=== PATIENT | female | born 1980 | race Caucasian/White ===

== ENCOUNTER → 2020-09-30 08:27 | Outpatient (CLI) | payer BC, SELFPAY ==
[2020-09-30 20:45] LABS: SARS-CoV-2 RNA PCR Negative
== END ==
PROVIDERS: PCP Nurse Practitioner Adult Health; Visit Provider Nurse Practitioner Adult Health
DX: Z20.822 Contact with and (suspected) exposure to COVID-19 (principal); B34.9 Viral infection, unspecified
CPT/HCPCS: C9803; U0003; U0005

== ENCOUNTER 2021-04-05 13:57 | Emergency (ER) | payer SELFPAY ==
[2021-04-05] VITALS (20 sets, daily range): BP systolic 109–136; BP diastolic 68–94; PULSE 95–134; RESP 13–22; TEMP 36.6–37.6; O2SAT 94–100
--- NOTE | ~2021-04-05 | XR_ITS ---
EXAMINATION: XR chest 2V 04/05/2021 14:14 INDICATION: Chest pain, vomiting and diarrhea PROCEDURE: 2 view chest COMPARISON: 08/26/2008 FINDINGS: The lungs are clear. The cardiomediastinal silhouette is within normal limits. There are no pleural effusions. There is no pneumothorax suspected. There are cholecystectomy clips. IMPRESSION: 1: NO ACUTE CARDIOPULMONARY DISEASE. Reviewed, dictated and finalized at location A.
--- NOTE | ~2021-04-05 | CT_ITS ---
EXAMINATION: CTA chest PE protocol DATE: 04/05/2021 23:11 INDICATION: Left chest pain. TECHNIQUE: Computed tomography angiography (CTA) of the chest was performed with 100 mL Omnipaque-350 intravenous contrast timed to evaluate the pulmonary arteries. Coronal maximum intensity projection 3D-reconstructions were created by the technologist. Automated exposure control and iterative reconst ruction technique were employed. The dose-length product was 466.28 mGy-cm. COMPARISON: CT abdomen and pelvis 05/16/2018 FINDINGS: The lungs demonstrate mild atelectasis. There is a staple line in left lower lobe. No pleur al effusion. The heart size is normal. No pericardial effusion. There is no pulmonary embolus. There are changes of cholecystectomy. There is heterotopic ossification between two left posterior ribs. Th ere is mild thoracic spondylosis. IMPRESSION: 1. No pulmonary embolus. Sensitivity is mildly decreased by motion artifact. Reviewed, dictated and finalized at location A.
--- NOTE | 2021-04-05 13:58 | ECG_ITS ---
Measurements Intervals [place] Rate: 127 P: 55 SD: 143 QRS: -9 QRSD: 85 T: 76 QT: 335 QTc: 488 Interpretive Statements SINUS TACHYCARDIA LOW QRS VOLTAGE IN PRECORDIAL LEADS BORDERLINE R WAVE PROGRESSION, ANTERIOR LEADS BORDERLINE ST-T WAVE ABNORMALITY- HIGH LATERAL LEADS ABNORMAL ECG Electronically Signed On 04-05-2021 14:42:28 CDT by Kennedy Hinton D.O.
[2021-04-05 14:25] LABS: Basophils Percent Auto 0.3 % (0.2-1.2); Eosinophils Percent Auto 0.1 % (0-4.4); Hematocrit 42.4 % (37.0-47.0); Hemoglobin 14.8 g/dL (12.0-15.0); Immature Granulocyte Absolute 0.09 K/mm3 (0.00-0.031); Immature Granulocyte Percent A 0.6 % (0-0.5); Lymphocytes Absolute Auto 1.43 K/mm3 (0.9-3.2); Lymphocytes Percent Auto 10.2 % (18.3-44.2); Mean Corpuscular HGB Conc 34.9 g/dl (32-36); Mean Corpuscular Hemoglobin 30.5 pg (26-34); Mean Corpuscular Volume 87.2 fl (80-100); Mean Platelet Volume 8.8 fl (7.4-10.4); Monocytes Absolute Auto 0.7 K/mm3 (0.1-0.6); Monocytes Percent Auto 4.9 % (2.6-8.5); Neutrophils Absolute Auto 11.7 K/mm3 (1.3-6.7); Neutrophils Percent Auto 83.9 % (45.5-73.1); Platelet Count Result 354 k/mm3 (150-375); Red Blood Count 4.86 M/mm3 (4.2-5.4); Red Cell Distribution Width 12.2 % (11.5-14.5)
[2021-04-05 14:37] LABS: Anion Gap 12 mmol/L (8-16); Blood Urea Nitrogen 13 mg/dL (7-17); Calcium 9.2 mg/dL (8.4-10.2); Carbon Dioxide 22 mmol/L (22-30); Chloride 105 mmol/L (98-107); Estimated CRCL calculation 97 ml/min; Estimated Glomerular Filt Rate > 60; Glucose 115 mg/dL (65-110); Sodium 139 mmol/L (137-145)
[2021-04-05 14:40] LABS: INR 0.9; Prothrombin Time 12.3 Seconds (11.1-14.7)
[2021-04-05 14:41] LABS: Partial Thromboplastin Time 24.4 SECONDS (22.3-36.8)
[2021-04-05 14:49] LABS: Troponin I < 0.012 ng/mL (0.000-0.034)
--- NOTE | 2021-04-05 19:21 | ED.CHESTPAIN ---
HPI - Chest Pain General Chief Complaint: Chest Pain Stated Complaint: Chest Pain Time Seen by Provider: 04/05/21 19:20 Source: patient, RN notes reviewed and old records reviewed Mode of arrival: ambulatory Limitations: no limitations History of Present Illness HPI narrative: Patient drove herself to the emergency room complaining of burning left chest pain started 2 days ago, quit her job 3 days ago because was very stressful, woke up this morning with severe nausea, vomiting and diarrhea. Patient reports vomiting at least 7 times, diarrhea at least 30-40 times a day. Patient reported that her had similar symptom 1 day prior to that. Patient is fully vaccinated for COVID-19. Patient reports that the chest pain gets worse with activity, get better with laying still. History of hypertension, hyperlipidemia, mother had CABG 8 months ago. Patient denies smoking, drinking or using drugs Related Data Allergies Allergy/AdvReac Type Severity Reaction Status Date / Time No Known Allergies Allergy Unverified 05/16/18 18:59 [facility] Family History Family History (Updated 10/19/17 @ 10:12 by DOCTOR UNKNOWN) Other Diabetes mellitus Family history of malignant neoplasm Hypertension Social History Social History Smoking status: Never smoker Alcohol intake: never Course Vital Signs Vital signs: Vital Signs Temperature 37.6 C 04/05/21 14:06 Pulse Rate 134 H 04/05/21 14:06 Respiratory Rate 16 04/05/21 14:06 Blood Pressure 130/94 H 04/05/21 14:06 Pulse Oximetry 97 04/05/21 14:06 Temperature 36.6 C 04/05/21 17:28 Pulse Rate 95 04/05/21 23:30 Respiratory Rate 20 04/05/21 23:45 Blood Pressure 120/74 04/05/21 23:45 Pulse Oximetry 98 04/05/21 23:45 MDM - Chest Pain Lab Data Result diagrams: 04/05/21 14:08 04/05/21 14:09 Labs: Lab Results 04/05/21 04/05/21 04/05/21 Range/Units 14:08 14:09 14:09 WBC 14.0 H (4.5-10.0) K/mm3 RBC 4.86 (4.2-5.4) M/mm3 Hgb 14.8 (12.0-15.0) g/dL Hct 42.4 (37.0-47.0) % MCV 87.2 (80-100) fl MCH 30.5 (26-34) pg MCHC 34.9 (32-36) g/dl RDW 12.2 (11.5-14.5) % Plt Count 354 (150-375) k/mm3 MPV 8.8 (7.4-10.4) fl Immature Gran % (Auto) 0.6 H (0-0.5) % Neut % (Auto) 83.9 H (45.5-73.1) % Lymph % (Auto) 10.2 L (18.3-44.2) % [place] % (Auto) 4.9 (2.6-8.5) % Eos % (Auto) 0.1 (0-4.4) % Baso % (Auto) 0.3 (0.2-1.2) % Lymph # (Auto) 1.43 (0.9-3.2) K/mm3 [place] # (Auto) 0.7 H (0.1-0.6) K/mm3 Eos # (Auto) 0.0 (0-0.3) K/mm3 Baso # (Auto) 0.0 (0.0-0.1) K/mm3 Abs Immat Gran (auto) 0.09 H (0.00-0.031) K/mm3 Absolute Neuts (auto) 11.7 H (1.3-6.7) K/mm3 Absolute Nucleated RBC 0.0 (0.0-0.012) K/mm3 Nucleated RBC % 0.0 (0.0-0.2) % PT 12.3 (11.1-14.7) Seconds INR 0.9 APTT 24.4 (22.3-36.8) SECONDS D-Dimer (<0.48) ug/mL Sodium 139 (137-145) mmol/L Potassium 4.0 (3.4-5.0) mmol/L Chloride 105 (98-107) mmol/L Carbon Dioxide 22 (22-30) mmol/L Anion Gap 12 (8-16) mmol/L BUN 13 (7-17) mg/dL Creatinine 0.70 (0.7-1.0) mg/dL Estim Creat Clear Calc 97 ml/min Estimated GFR > 60 (59 - ) Glucose 115 H (65-110) mg/dL Calcium 9.2 (8.4-10.2) mg/dL Troponin I < 0.012 (0.000-0.034) ng/mL 04/05/21 04/05/21 Range/Units 20:53 21:15 WBC (4.5-10.0) K/mm3 RBC (4.2-5.4) M/mm3 Hgb (12.0-15.0) g/dL Hct (37.0-47.0) % MCV (80-100) fl MCH (26-34) pg MCHC (32-36) g/dl RDW (11.5-14.5) % Plt Count (150-375) k/mm3 MPV (7.4-10.4) fl Immature Gran % (Auto) (0-0.5) % Neut % (Auto) (45.5-73.1) % Lymph % (Auto) (18.3-44.2) % [place] % (Auto) (2.6-8.5) % Eos % (Auto) (0-4.4) % Baso % (Auto) (0.2-1.2) % Lymph # (Auto) (0.9-3.2) K/mm3 [place] # (Auto) (0.1-0.6) K/mm3 Eos # (Auto) (0-0.3) K/mm3 Baso #
[2021-04-05 21:11] LABS: D Dimer 0.92 ug/mL (<0.48)
[2021-04-05] MEDS: SODIUM CHLORIDE 0.9% IV 1,000 ML 999 ML IV CONT ×2 (21:12→21:17)
[2021-04-05] MEDS: ONDANSETRON INJ 4 MG/2 ML VIAL IV PUSH (21:13)
[2021-04-05 21:50] LABS: Troponin I < 0.012 ng/mL (0.000-0.034)
== END 2021-04-06 00:38 | disposition home or self-care (01) ==
PROVIDERS: Emergency Medicine; Emergency Provider Emergency Medicine; PCP Nurse Practitioner Adult Health
DX: K52.9 Noninfective gastroenteritis and colitis, unspecified (principal); R07.9 Chest pain, unspecified; I10 Essential (primary) hypertension; E78.5 Hyperlipidemia, unspecified; Z95.1 Presence of aortocoronary bypass graft
CPT/HCPCS: 36415; 71046; 71275; 80048; 84484; 85025; 85380; 85610; 85730; 93005; 96361; 96374; 99284; J2405; J7030; Q9967

== ENCOUNTER 2022-06-23 16:36 | Emergency (ER) | payer OTHER, SELFPAY ==
--- NOTE | ~2022-06-23 | XR_ITS ---
EXAMINATION: XR chest 2V Exam Date/Time: 06/23/2022 17:13 FILM SORTER HISTORY: chest congestion, cough, covid 12-22 Comparison: 04/05/2021. RESULT: Lines, tubes, and devices: Cholecystectomy clips. Lungs and pleura: Clear. Cardiomediastinal silhouette: Stable. Other: No acute osseous or upper abdominal finding. IMPRESSION: No acute cardiopulmonary process. Reviewed, dictated and finalized at location K. SORTER
[2022-06-23 16:53] VITALS: BP 143/90; PULSE 94; RESP 16; TEMP 36.7; O2SAT 100
--- NOTE | 2022-06-23 17:46 | ED.URI ---
HPI - URI/Sore Throat General Chief Complaint: Upper Respiratory Infection Stated Complaint: cough,chest congestion Time Seen by Provider: 06/23/22 17:30 Source: RN notes reviewed and old records reviewed Mode of arrival: ambulatory Limitations: no limitations History of Present Illness HPI Narrative: 40 old female who presents to [facility] with complaints of having COVID June 10 with complaints of lingering cough. Patient states she has coughed so much she has some upper abdominal discomfort, has been taking Robitussin liquid day and night for the cough, denies any present fevers chills or sweats. Patient reports that she did take antiviral when she had COVID but doesn't think it really helped decrease her symptoms. MD elicited complaint: cough and sore throat Pertinent past history: other (Covid diagnosed June 10) Onset (ago): week(s) (2) Able to tolerate fluids by mouth: Yes Treatments prior to arrival: other (cough and cold medication) Related Data Home Medications Medication Instructions Recorded Confirmed cholestyramine-aspartame 4 gram 1 ea PO DAILY 01/08/22 06/23/22 oral powder (Cholestyramine Light) losartan 50 mg tablet 50 mg PO DAILY 01/08/22 06/23/22 simvastatin 20 mg tablet 20 mg PO DAILY 01/08/22 06/23/22 Allergies Allergy/AdvReac Type Severity Reaction Status Date / Time No Known Allergies Allergy Verified 06/23/22 16:45 Review of Systems Review of Systems: CONSTITUTIONAL: Denies malaise, chills, sweats, or fever. EYES: Denies visual changes, redness, or discharge. ENT: Reports rhinorrhea, congestion, sinus pain, otalgia and sore throat. CARDIOVASCULAR: Denies chest pain, palpitations, or edema. RESPIRATORY: Reports harsh persistent cough.? Denies dyspnea. GASTROINTESTINAL: Denies abdominal pain, nausea, vomiting, diarrhea SKIN: Denies rash or itching. MUSCULOSKELETAL: Denies myalgia. NEUROLOGIC: Denies headache. All systems reviewed & are unremarkable except as noted in HPI and below PMFSH Past Medical History Medical History (Updated 06/29/22 @ 15:38 by Kimberlee Millan NP) Clostridium difficile infection COVID-19 05/2022 Elevated cholesterol Hypertension Surgical History Surgical History (Updated 06/29/22 @ 15:37 by Kimberlee Millan NP) H/O tubal ligation H/O: hysterectomy History of cholecystectomy Family History Family History (Updated 10/19/17 @ 10:12 by DOCTOR UNKNOWN) Other Diabetes mellitus Family history of malignant neoplasm Hypertension Social History Social History (Updated 06/29/22 @ 15:38 by Kimberlee Millan NP) Smoking status: Never smoker Alcohol intake: never Substance use: never Substance use type: does not use Gender identity (if verbalized by the patient): Female Spiritual care concerns: No Comments At time of signature, agree with nursing past medical, surgical, social and family history. There is no relevant family history pertinent to the presenting complaint Exam Narrative: GENERAL: Well-appearing, well-nourished, and in no acute distress. HEAD: Normocephalic EYES: PERRLA, conjunctivae clear ENT: Nares clear, turbinates edematous and erythematous, clear discharge. Mucous membranes moist. TM pearly gunn with dull light reflex bilaterally; no tragal tenderness. Oropharynx erythematous without lesions. Tonsils not enlarged and without exudate, no drooling, no hoarseness, no trismus, uvula midline. NECK: Supple. No lymphadenopathy CHEST: Decreased to auscultation, breath sounds equal. No wheezing, rhonchi, rales, or stridor. No respiratory distress, speaks in full sentences.hacking cough SAO2 100% on room air HEART: Regular rate and rhythm. No murmur heard. SKIN: Warm, dry, no rash. NEURO: Alert and oriented x3. PSYCH: Normal mood and affect Course Course Emergency Course: Patient is aware of diagnosis, understands and agrees to treatment plan.? Anticipatory guidance g
== END 2022-06-23 18:12 | disposition home or self-care (01) ==
PROVIDERS: Emergency Provider Registered Nurse; PCP Family Medicine
DX: R05.1 Acute cough (principal); E78.00 Pure hypercholesterolemia, unspecified; I10 Essential (primary) hypertension; Z86.19 Personal history of other infectious and parasitic diseases; Z86.16 Personal history of COVID-19
CPT/HCPCS: 71046; 99213; G0463

== ENCOUNTER 2022-11-04 16:06 | Observation (INO) | payer OTHER, SELFPAY ==
--- NOTE | ~2022-11-04 | XR_ITS ---
EXAMINATION: XR chest 2V DATE: 11/04/2022 17:13 INDICATION: Left-sided chest and arm pain. Shortness of breath. TECHNIQUE: PA and lateral views of the chest were obtained. COMPARISON: Chest radiograph dated 06/23/2022 FINDINGS: The lungs remain clear with no focal airspace opacities, pulmonary edema, pleural effusion or pneumot horax. The cardiomediastinal silhouette is normal. Cholecystectomy clips in right upper quadrant. IMPRESSION: 1. No acute cardiopulmonary disease. Reviewed, dictated and finalized at location A.
--- NOTE | ~2022-11-04 | MR_ITS ---
EXAMINATION: MR shoulder LT wo con DATE: 11/05/2022 12:53 INDICATION: Left shoulder injury and pain. TECHNIQUE: Magnetic resonance imaging (MRI) of the left shoulder was performed without intravenous co ntrast. Sequences included axial PD-weighted FS FSE, coronal oblique PD-weighted FS FSE and T2-weight ed FS FSE, and sagittal oblique T2-weighted FS FSE and T1-weighted FSE. COMPARISON: Chest CT 04/05/2021 FINDINGS: Coracoacromial arch: The acromion undersurface is curved in morphology (type II). There is mild acromioclavicular joint os teoarthritis. There is mild subacromial/subdeltoid bursitis. Rotator cuff: There is moderate supraspinatus and infraspinatus tendinopathy. There is an interstitial tear at the distal attachment of the conjoined portion of the tendon measuring 3 mm anterior to posterior by 4 mm proximal to distal by 20% tendon thickness. Teres minor tendon is normal. There is mild subscapulari s tendinopathy. The rotator cuff muscle bellies are normal. Biceps tendon and glenoid labrum: Biceps tendon is in bicipital groove. Intra-articular biceps tendon is normal. The glenoid labrum is normal. Fluid: There is a small glenohumeral joint effusion. Bones/cartilage: The glenoid cartilage is normal. The humeral head cartilage is normal. IMPRESSION: 1. Moderate rotator cuff tendinopathy with small interstitial tear of the conjoined portion of supras pinatus and infraspinatus tendons. 2. Small glenohumeral joint effusion. 3. Mild subacromial/subdeltoid bursitis. 4. Mild acromioclavicular joint osteoarthritis. Reviewed, dictated and finalized at location A. IMPRESSION: 1. Moderate rotator cuff tendinopathy with small interstitial tear of the conjo ined portion of supraspinatus and infraspinatus tendons. 2. Small glenohumeral joint effusion. 3. Mild subacromial/subdeltoid bursitis. 4. Mild acromioclavicular joint osteoarthritis.
--- NOTE | ~2022-11-04 | NM_ITS ---
EXAMINATION: NM syed stress w perfusion DATE: 11/05/2022 10:17 CDT INDICATION: Chest pain TECHNIQUE: Rest images were obtained following intravenous administration of 11.4 mCi Tc99m tetrofosm in (Myoview). The patient was infused intravenously with Lexiscan (regadenoson). Then, 34 mCi Tc99m t etrofosmin (Myoview) was administered intravenously, and stress images were obtained. Data was recons tructed into short axis and horizontal and vertical long axis SPECT images. Gated SPECT images were a lso obtained. COMPARISON: None. FINDINGS: There is no definite reversible or fixed perfusion abnormality to suggest ischemia or infar ction. There is no segmental wall motion abnormality. Left ventricular ejection fraction measures 7 0%. IMPRESSION: 1. No definite ischemia or infarct. 2. Normal left ventricular ejection fraction measuring 70%. Reviewed, dictated and finalized at location B.
[2022-11-04 16:09] VITALS: PULSE 103; RESP 18; TEMP 36.6; O2SAT 96
--- NOTE | 2022-11-04 16:13 | ECG_ITS ---
Rate 105 MO 148 QRSd 86 QT 344 QTc 455 --[place]-- P 34 QRS -7 T 33 SINUS TACHYCARDIA DELAYED PRECORDIAL R/S TRANSITION BORDERLINE ECG COMPARISON TO PRIOR ECG 04-05-21 14:00 HEART RATE HAS DECREASED Electronically Signed On 11-05-2022 7:34:57 CDT by Kennedy MUNGUIA
--- NOTE | 2022-11-04 16:13 | ECG_ITS ---
Measurements Intervals [place] Rate: 94 P: 27 PA: 144 QRS: -5 QRSD: 82 T: 30 QT: 355 QTc: 445 Interpretive Statements SINUS RHYTHM DELAYED PRECORDIAL R/S TRANSITION LOW QRS VOLTAGE IN PRECORDIAL LEADS BASELINE ARTIFACT- I, III, AVR, AVL, V1 BORDERLINE ECG NO PREVIOUS ECG AVAILABLE FOR COMPARISON Electronically Signed On 11-04-2022 21:33:40 CDT by Kennedy MUNGUIA
--- NOTE | 2022-11-04 18:08 | ED.CHESTPAIN ---
HPI - Chest Pain General Chief Complaint: Chest Pain Stated Complaint: chest tenderness with palpation Time Seen by Provider: 11/04/22 17:27 History of Present Illness HPI narrative: Patient is a 42-year-old female with a history of hypertension, hyperlipidemia presenting with chest pain. Patient states that she lifted a 50 pound bag of sand about a week ago when filling her kids sandbox. States that shortly after that she started having some left shoulder pain. States that she called her PCP who obtained a left shoulder x-ray which looked fine. Unfortunately, the pain has now spread into her left chest. States that it is worse with movement and palpation. Denies shortness of breath or lightheadedness. No leg swelling or erythema. Has been taking ibuprofen with minimal relief. Denies numbness or weakness, nausea or vomiting, diarrhea, dysuria, back pain. Related Data Home Medications Medication Instructions Recorded Confirmed cholestyramine-aspartame 4 gram 1 ea PO DAILY 01/08/22 11/04/22 oral powder (Cholestyramine Light) losartan 50 mg tablet 50 mg PO DAILY 01/08/22 11/04/22 simvastatin 20 mg tablet 20 mg PO DAILY 01/08/22 11/04/22 Allergies Allergy/AdvReac Type Severity Reaction Status Date / Time No Known Allergies Allergy Verified 06/23/22 16:45 Review of Systems Review of Systems: All systems reviewed & are unremarkable except as noted in HPI and below PMFSH Past Medical History Medical History Clostridium difficile infection COVID-19 05/2022 Elevated cholesterol Hypertension Surgical History Surgical History H/O tubal ligation H/O: hysterectomy History of cholecystectomy Family History Family History Other Diabetes mellitus Family history of malignant neoplasm Hypertension Social History Social History Smoking status: Never smoker Alcohol intake: never Substance use: current Substance use type: does not use Lack of Transportation: No Lack of Food: Never True Current Housing: I Have Housing Concerned About Future Housing: No Difficulty Paying Gas/Electric Bills: No Difficulty Paying for Meds: No Currently Unemployed: No Education: Bachelor's Degree Difficulty w/ Childcare or Family Care: No Living arrangements: with family Gender identity (if verbalized by the patient): Female Spiritual care concerns: No Exam Narrative: GENERAL: Well-appearing, well-nourished, and in no acute distress. HEAD: Normocephalic, atraumatic. EYES: PERRLA and EOMI. ENT: Nares clear, no rhinorrhea or epistaxis. Mucous membranes moist. NECK: Supple. CHEST: Clear to auscultation. No respiratory distress. Very tender along the left costochondral border, minimal tenderness of anterior left shoulder, states the pain is worsened with movement HEART: Regular rate and rhythm. No murmur heard. Normal peripheral pulses. ABDOMEN: Soft, nontender, nondistended EXTREMITIES: Normal range of motion. No edema. SKIN: Warm, dry, no rash. NEURO: No focal deficits. Alert and oriented x3. PSYCH: Normal mood and affect. Course Vital Signs Vital signs: Vital Signs Temperature 97.8 F 11/04/22 16:09 Pulse Rate 103 H 11/04/22 16:09 Respiratory Rate 18 11/04/22 16:09 Pulse Oximetry 96 11/04/22 16:09 Oxygen Delivery Room Air 11/04/22 16:09 Temperature 98.2 F 11/05/22 12:00 Pulse Rate 83 11/05/22 14:00 Respiratory Rate 16 11/05/22 12:00 Blood Pressure 128/75 11/05/22 12:00 Pulse Oximetry 100 11/05/22 12:00 Oxygen Delivery Room Air 11/05/22 12:00 MDM - Chest Pain MDM Narrative Medical decision making narrative: Patient is a 42-year-old female presenting with left shoulder and chest pain. Vitals are wnl. Exam re
[2022-11-04 18:13] LABS: Basophils Absolute Auto 0.1 K/mm3 (0.0-0.1); Basophils Percent Auto 0.6 % (0.2-1.2); Eosinophils Absolute Auto 0.3 K/mm3 (0-0.3); Eosinophils Percent Auto 2.1 % (0-4.4); Hematocrit 39.1 % (37.0-47.0); Hemoglobin 13.5 g/dL (12.0-15.0); Immature Granulocyte Percent A 0.7 % (0-0.5); Lymphocytes Percent Auto 25.1 % (18.3-44.2); Mean Corpuscular HGB Conc 34.5 g/dl (32-36); Mean Corpuscular Hemoglobin 30.3 pg (26-34); Mean Corpuscular Volume 87.7 fl (80-100); Mean Platelet Volume 9.2 fl (7.4-10.4); Monocytes Absolute Auto 1.1 K/mm3 (0.1-0.6); Monocytes Percent Auto 7.3 % (2.6-8.5); Neutrophils Absolute Auto 9.7 K/mm3 (1.3-6.7); Neutrophils Percent Auto 64.2 % (45.5-73.1); Platelet Count Result 314 k/mm3 (150-375); Red Blood Count 4.46 M/mm3 (4.2-5.4); Red Cell Distribution Width 12.1 % (11.5-14.5); White Blood Count 15.2 K/mm3 (4.5-10.0)
[2022-11-04 18:19] LABS: Alanine Aminotransferase 69 U/L (6-35); Albumin Level 4.6 g/dL (3.5-5.1); Alkaline Phosphatase 84 U/L (38-126); Anion Gap 11 mmol/L (8-16); Aspartate Amino Transferase 61 U/L (14-36); Bilirubin,Total 1.1 mg/dL (0.2-1.3); Blood Urea Nitrogen 11 mg/dL (7-17); Calcium 9.1 mg/dL (8.4-10.2); Carbon Dioxide 24 mmol/L (22-30); Chloride 102 mmol/L (98-107); Estimated Glomerular Filt Rate > 60; Glucose 103 mg/dL (65-110); Lipase 80 U/L (23-300); Sodium 137 mmol/L (137-145)
[2022-11-04 18:23] LABS: INR 0.9; Partial Thromboplastin Time 24.4 SECONDS (22.3-36.8)
[2022-11-04] MEDS: KETOROLAC 15 MG/ML VIAL (*BKC) IV PUSH (18:23)
[2022-11-04] MEDS: SODIUM CHLORIDE 0.9% IV 1,000 ML 999 ML IV CONT (18:23)
[2022-11-04 18:30] LABS: Troponin I < 0.012 ng/mL (0.000-0.034)
[2022-11-04 19:08] VITALS: BP 121/81; PULSE 88; RESP 16; O2SAT 100
--- NOTE | 2022-11-04 20:10 | ECG_ITS ---
Measurements Intervals [place] Rate: 94 P: 27 DE: 144 QRS: -5 QRSD: 82 T: 30 QT: 355 QTc: 445 Interpretive Statements SINUS RHYTHM DELAYED PRECORDIAL R/S TRANSITION LOW QRS VOLTAGE IN PRECORDIAL LEADS BASELINE ARTIFACT- I, III, AVR, AVL, V1 BORDERLINE ECG Electronically Signed On 11-04-2022 21:33:40 CDT by Kennedy Hinton D.O. COMPARED TO ECG 11/04/2022 16:20:42 SINUS RHYTHM NOW PRESENT MTDD
[2022-11-04] MEDS: ASPIRIN 81 MG CHEWABLE TABLET 324 MG PO (20:11)
[2022-11-04] MEDS: MORPHINE SULFATE (*CRX) 4 MG/ML INJ IV PUSH (20:16)
[2022-11-04 20:27] LABS: D Dimer < 0.27 ug/mL (<0.48)
--- NOTE | 2022-11-04 20:34 | PM.IMHP ---
H&P: HPI History of Present Illness Date/Time: 11/04/22 20:34 Chief Complaint: chest pain Narrative: This [id number] female with past medical history significant for obesity, hypertension, dyslipidemia. presents to the emergency room due to left-sided chest pain which is reproducible on physical exam, worse with palpation, patient attributes it to lifting a 50 lb sandbag. Pain is localized to the left chest area as well and shoulder area, pain was relieved by pain medication, denies any dizziness, lightheadedness, palpitations, nausea, vomiting, epigastric pain, cough, sputum production, fevers rigors or chills, no leg swelling, no PND ,no orthopnea, patient has been in her usual state of health up until this point. Preliminary workup was significant for troponin which was slightly elevated. Patient is been placed in observation for further evaluation management and treatment. A chest x-ray was reported as; EXAMINATION: XR chest 2V DATE: 11/04/2022 17:13 INDICATION: Left-sided chest and arm pain. Shortness of breath. TECHNIQUE: PA and lateral views of the chest were obtained. COMPARISON: Chest radiograph dated 06/23/2022 FINDINGS: The lungs remain clear with no focal airspace opacities, pulmonary edema, pleural effusion or pneumothorax. The cardiomediastinal silhouette is normal. Cholecystectomy clips in right upper quadrant. IMPRESSION: 1. No acute cardiopulmonary disease. Review of Systems Review of Systems: precordial chest pain Constitutional: Constitutional: Denies chills, Denies fatigue, Denies fever(s), Denies malaise, Denies night sweats, Denies poor appetite and Denies weakness Eyes: Eyes: Denies change in vision ENT: Denies dysphagia, Denies vertigo, Denies dizziness and Denies odynophagia Cardiovascular: Cardiovascular: Reports chest pain, Reports chest pain at rest, Denies irregular heart rhythm, Denies leg edema, Denies lightheadedness, Denies radiating jaw, neck or arm pain, Denies palpitations and Denies dyspnea Respiratory: Respiratory: Denies chest congestion, Denies cough, Denies excessive phlegm production, Denies pain on inspiration and Denies dyspnea Gastrointestinal: Gastrointestinal: Denies abdominal pain, Denies dyspepsia, Denies heartburn, Denies diarrhea, Denies nausea and Denies vomiting Genitourinary: Genitourinary: Denies dysuria Musculoskeletal: Musculoskeletal: Reports arthralgias ( sternum costochondral) Integumentary/Breasts: Skin/Breast: Denies rash Neurologic: Denies focal weakness and Denies Sensory deficit (Neuro) Psychiatric: Psychiatric: Reports no additional psychiatric complaints and Reports as per HPI Endocrine: Endocrine: Denies cold intolerance, Denies flushing, Denies heat intolerance, Denies polyphagia, Denies polydipsia and Denies palpitations Hematologic/Lymphatic: Hematologic/Lymphatic: Denies no additional hematologic/lymphatic complaints and Denies as per HPI Allergic/Immunologic: Allergic/Immunologic: Reports no additional allergic/immunologic complaints and Reports as per HPI PMFSH Past Medical History Medical History Clostridium difficile infection COVID-19 05/2022 Elevated cholesterol Hypertension Surgical History Surgical History H/O tubal ligation H/O: hysterectomy History of cholecystectomy Family History Family History Other Diabetes mellitus Family history of malignant neoplasm Hypertension Social History Social History Smoking status: Never smoker Alcohol intake: never Substance use: current Substance use type: does not use Lack of Transportation: No Lack of Food: Never True Current Housing: I Have Housing Concerned About Future Housing: No Difficulty Paying Gas/Electric Bills:
--- NOTE | 2022-11-04 20:48 | PC.NURSE ---
Attempted to call report to floor receiving RN unavailable.
[2022-11-04 21:15] VITALS: BP 123/92; PULSE 88; RESP 16; TEMP 36.8; O2SAT 96
--- NOTE | 2022-11-04 21:19 | ADMGEN ---
This patient, Tanya Jerez, was admitted to IMU Room 209-01. Patient/family oriented to hospital policies and general routines including ID bracelet, bed and alarms, visiting hours, pain management, procedures, bathroom and other care routines, personal items, smoking policy, room service/diet, and visiting hours. Information on how to activate the Rapid Response Team has been discussed. Patient/Family are encouraged to report perceived risks to care and to ask questions if they do not understand what they are told or what they should do.
[2022-11-04 21:25] VITALS: BMI 35.8
[2022-11-04 22:00] VITALS: PULSE 88
[2022-11-04] MEDS: KETOROLAC 30 MG/ML VIAL (*BKC) IV PUSH (22:50)
[2022-11-05] VITALS (8 sets, daily range): BP systolic 103–128; BP diastolic 68–79; PULSE 68–97; RESP 16; TEMP 36.4–36.8; O2SAT 96–100
[2022-11-05 00:34] LABS: Troponin I < 0.012 ng/mL (0.000-0.034)
--- NOTE | 2022-11-05 02:41 | EST_ITS ---
Patient Info Name: Tanya Jerez Age: 42 years : 1980 Gender: Female Ht: 64 in Wt: 208 lbs BSA: 2.11 m2 Exam Date: 11/05/2022 9:01 AM Exam Location: [facility] Stress Patient Status: Inpatient Admit Date: 11/04/2022 Staff Ordering Physician: Josee Silva MD Attending Provider: Josee Silva MD Exercise Technologist: Eliane Lindquist RDCS Exercise Physician: Kennedy Hinton DO Exam Type: CA stress syed w NM Study Info Indications - ELEVATED TROPONIN A regadenoson stress test was performed. Summary 1. 1. Negative lexiscan stress test for ischemic ST changes by ECG criteria. 2. 2. Baseline hypertension. 3. 3. Nuclear scan to follow and will be reported separately. Please correlate with it. 4. 4. Patient informed of the above results. Protocol: Lexiscan Stress ECG Details Stage: REST Duration (min): 1 min : 1 sec HR (bpm): 96 SBP (mmHg): 153 DBP (mmHg): 93 Stage: REST Duration (min): 4 min : 14 sec HR (bpm): 99 SBP (mmHg): 153 DBP (mmHg): 93 Stage: STAGE 1 Duration (min): 1 min : 0 sec HR (bpm): 138 SBP (mmHg): 167 DBP (mmHg): 97 Stage: RECOVERY Duration (min): 1 min : 0 sec HR (bpm): 133 SBP (mmHg): 177 DBP (mmHg): 102 Stage: RECOVERY Duration (min): 2 min : 0 sec HR (bpm): 118 SBP (mmHg): 177 DBP (mmHg): 102 Stage: RECOVERY Duration (min): 3 min : 0 sec HR (bpm): 111 SBP (mmHg): 149 DBP (mmHg): 98 Stage: RECOVERY Duration (min): 4 min : 0 sec HR (bpm): 108 SBP (mmHg): 149 DBP (mmHg): 98 Stage: RECOVERY Duration (min): 4 min : 48 sec HR (bpm): 109 SBP (mmHg): 144 DBP (mmHg): 97 Rest HR: 99 bpm Peak HR: 141 bpm Rest Sys BP: 153 mmHg Peak Sys BP: 177 mmHg Max Pred HR: 178 bpm % Max Pred HR: 79 % Target HR: 151 bpm Max RPP: 24,957 bpm*mmHg Termination Reason: Completed protocol Cardiac Symptoms: Shortness of breath, Flushed Total Time: 1 min : 0 sec Rest Moya BP: 93 mmHg Peak Moya BP: 102 mmHg Total Dose: 0.4 mg Resting ECG Sinus rhythm. Stress ECG No ST changes. Arrhythmias None. Report Signatures
[2022-11-05] MEDS: KETOROLAC 30 MG/ML VIAL (*BKC) IV PUSH (08:07)
[2022-11-05] MEDS: LOSARTAN POTASSIUM 50 MG TABLET PO (10:35)
[2022-11-05] MEDS: ENOXAPARIN 40 MG/0.4 ML SYRINGE SUB-Q (10:35)
[2022-11-05] MEDS: CHOLESTYRAMINE LIGHT 4 GM POWD.PACK PO (10:35)
[2022-11-05] MEDS: SIMVASTATIN 20 MG TABLET PO (10:35)
[2022-11-05] MEDS: HYDROcodone/acetaminophen (*CRX) 5-325 MG TABLET 1 TAB PO ×2 (10:51→14:45)
--- NOTE | 2022-11-05 14:46 | PM.DS ---
DS: Admitting Diagnosis Discharge Date 11/05/22 Admitting Diagnosis Chest pain and moderate rotator cuff DS: Discharge Diagnosis Discharge Diagnosis (1) Chest pain: Qualifiers: Chest pain type: other chest pain Qualified Code(s): R07.89 - Other chest pain Code(s): R07.9 - Chest pain, unspecified Status: Acute Assessment and Plan: place in observation in IMU trend troponins EKG reviewed nitro/morphine as stress test was negative for any ischemia NPO (2) Acute costochondritis: Code(s): M94.0 - Chondrocostal junction syndrome [Tietze] Status: Acute Assessment and Plan: Tylenol/ Toradol as needed supportive care (3) Elevated troponin I level: Code(s): R77.8 - Other specified abnormalities of plasma proteins Status: Acute Assessment and Plan: continue to monitor continue to trend (4) Elevated cholesterol: Code(s): E78.00 - Pure hypercholesterolemia, unspecified Status: Acute Assessment and Plan: on statin (5) Hypertension: Qualifiers: Hypertension type: primary hypertension Qualified Code(s): I10 - Essential (primary) hypertension Code(s): I10 - Essential (primary) hypertension Status: Acute Assessment and Plan: continue home meds continue to monitor (6) Tendinopathy of rotator cuff: Qualifiers: Laterality: left Qualified Code(s): M67.912 - Unspecified disorder of synovium and tendon, left shoulder Code(s): M67.919 - Unspecified disorder of synovium and tendon, unspecified shoulder Status: Acute Assessment and Plan: MRI was preformed that showed rotator cuff tear Will get her a sling for comfort pain medications DS: Summary Hospital Course Hospital Course: patient is a 42-year-old female with a past medical history of obesity, hypertension, dyslipidemia who presented the ED with complaints of left-sided chest pain. Patient recently went to pick up attendant a bag is seen and for her child's sand box shortly after this is when the pain started. Patient was taking ibuprofen and Tylenol at home however was not getting any relief. Troponins were negative x3. Chest x-ray was negative for any acute findings. patient still has chest pain however she states that is reproducible with palpation. Stress test was negative for any ischemia With an EF of 70%. Patient was given Naselle and the pain did subside. Spoke with Orthopedics who aspirin outpatient referral. They stated the patient can use a sling for comfort. Spoke to the patient about pain medicine at a kid and outpatient referral. Patient does have an appointment with her primary care provider on Tuesday. tried to call the primary care provider however they close at 11:30 a.m.. Currently patient is stable and able to discharge for labs and vital signs. Status at Discharge Functional status at discharge: independent ambulation Overall status at discharge: patient is progressing back to baseline Time Spent with Patient Time attestation: Total time spent providing and/or coordinating discharge services: 48 minutes Time spent: Greater than 30 minutes Specific discharge activities: Diagnostic testing, chart review, developing a treatment plan, education, care coordination documentation, physical exam, result review Exam Narrative: General: well-nourished, well-appearing 42-year-old female, sitting up in bed, comfortable, NARD Neuro: awake, alert and oriented x4, speech clear, no focal neuro deficits noted HEENMT: normocephalic, atraumatic, EOMI, sclerae anicteric, moist oral mucosa Respiratory: Clear to auscultation bilaterally without crackles, rhonchi or wheezes, nonlabored breathing Cardio: regular rate, regular rhythm with S1-S2, palpation preformed and pain was reproducible Abdomen: nondistended, normoactive bowel sounds, soft, nonte
== END 2022-11-05 16:10 | disposition home or self-care (01) ==
LOC: ANHED 17:37 → ANHIMU 21:01
PROVIDERS: Admitting Provider Internal Medicine; Emergency Provider Emergency Medicine; PCP Family Medicine; Visit Provider Chiropractor
DX: R07.89 Other chest pain (principal); M94.0 Chondrocostal junction syndrome [Tietze]; R77.8 Other specified abnormalities of plasma proteins; M67.912 Unspecified disorder of synovium and tendon, left shoulder; M75.102 Unspecified rotator cuff tear or rupture of left shoulder, not specified as traumatic; M25.412 Effusion, left shoulder; M75.52 Bursitis of left shoulder; M19.012 Primary osteoarthritis, left shoulder; E78.5 Hyperlipidemia, unspecified; E78.00 Pure hypercholesterolemia, unspecified; E66.9 Obesity, unspecified; Z68.35 Body mass index [BMI] 35.0-35.9, adult; I10 Essential (primary) hypertension; Z86.16 Personal history of COVID-19; Z79.899 Other long term (current) drug therapy; Z82.49 Family history of ischemic heart disease and other diseases of the circulatory system
CPT/HCPCS: 36415; 71046; 73221; 78452; 80053; 83690; 84484; 85025; 85380; 85610; 85730; 93005; 93017; 96361; 96365; 96372; 96375; 96376; 99285; A4565; A9270; A9502; G0378; J0131; J1650; J1885; J2270; J2785; J7030

== ENCOUNTER 2022-12-15 15:49 | Outpatient (CLI) | payer OTHER, SELFPAY ==
[2022-12-15 16:32] LABS: CRP 0.6 mg/dL (<1.0)
[2022-12-15 16:46] LABS: Erythrocyte Sedimentation Rate 20 mm/hr (0-20)
[2022-12-18 10:13] LABS: Immunoglobulin A 287 mg/dL (47-310); TTG IGA AB <1.0 U/mL (<15.0)
== END 2022-12-15 15:50 | disposition home or self-care (01) ==
LOC: ANHLAB 15:51
PROVIDERS: PCP Family Medicine; Visit Provider Nurse Practitioner
DX: K52.9 Noninfective gastroenteritis and colitis, unspecified (principal); Z86.19 Personal history of other infectious and parasitic diseases
CPT/HCPCS: 36415; 82784; 84443; 85652; 86140; 86364

== ENCOUNTER 2022-12-16 07:34 | Outpatient (CLI) | payer OTHER, SELFPAY ==
[2022-12-16 09:33] LABS: Toxigenic C. Diff NEGATIVE (NEGATIVE)
[2022-12-23 21:21] LABS: Pancreatic Elastase, Stool >500 mcg/g
[2022-12-25 01:37] LABS: Calprotectin, Stool 99 mcg/g
== END 2022-12-16 07:35 | disposition home or self-care (01) ==
LOC: ANHLAB 07:34
PROVIDERS: PCP Family Medicine; Visit Provider Nurse Practitioner
DX: K52.9 Noninfective gastroenteritis and colitis, unspecified (principal); Z86.19 Personal history of other infectious and parasitic diseases
CPT/HCPCS: 82653; 83993; 87045; 87427; 87493

== ENCOUNTER 2022-12-22 14:06 | Outpatient (CLI) | payer OTHER, SELFPAY ==
[2022-12-22 14:25] LABS: Basophils Absolute Auto 0.1 K/mm3 (0.0-0.1); Basophils Percent Auto 0.4 % (0.2-1.2); Eosinophils Absolute Auto 0.2 K/mm3 (0-0.3); Eosinophils Percent Auto 1.6 % (0-4.4); Hematocrit 38.1 % (37.0-47.0); Hemoglobin 13.1 g/dL (12.0-15.0); Immature Granulocyte Absolute 0.13 K/mm3 (0.00-0.031); Immature Granulocyte Percent A 0.9 % (0-0.5); Lymphocytes Absolute Auto 3.26 K/mm3 (0.9-3.2); Lymphocytes Percent Auto 22.8 % (18.3-44.2); Mean Corpuscular HGB Conc 34.4 g/dl (32-36); Mean Corpuscular Volume 87.2 fl (80-100); Monocytes Percent Auto 6.6 % (2.6-8.5); Neutrophils Absolute Auto 9.7 K/mm3 (1.3-6.7); Neutrophils Percent Auto 67.7 % (45.5-73.1); Platelet Count Result 321 k/mm3 (150-375); Red Blood Count 4.37 M/mm3 (4.2-5.4); Red Cell Distribution Width 11.9 % (11.5-14.5); White Blood Count 14.3 K/mm3 (4.5-10.0)
[2022-12-22 15:43] LABS: Erythrocyte Sedimentation Rate 19 mm/hr (0-20)
[2022-12-22 15:57] LABS: Alanine Aminotransferase 74 U/L (6-35); Albumin Level 4.7 g/dL (3.5-5.1); Alkaline Phosphatase 96 U/L (38-126); Anion Gap 11 mmol/L (8-16); Aspartate Amino Transferase 47 U/L (14-36); Bilirubin,Total 1.3 mg/dL (0.2-1.3); Blood Urea Nitrogen 6 mg/dL (7-17); CRP 3.3 mg/dL (<1.0); Calcium 9.2 mg/dL (8.4-10.2); Carbon Dioxide 25 mmol/L (22-30); Chloride 101 mmol/L (98-107); Estimated Glomerular Filt Rate > 60; Glucose 99 mg/dL (65-110); Potassium 3.5 mmol/L (3.4-5.0); Sodium 137 mmol/L (137-145)
== END 2022-12-22 14:07 | disposition home or self-care (01) ==
LOC: ANHLAB 14:08
PROVIDERS: PCP Family Medicine; Visit Provider Internal Medicine Hematology & Oncology
DX: D72.829 Elevated white blood cell count, unspecified (principal)
CPT/HCPCS: 36415; 80053; 85025; 85652; 86140

== ENCOUNTER 2023-01-10 01:56 | Day surgery (SDC) | payer OTHER, SELFPAY ==
[2023-01-03 14:53] VITALS: BMI 36.1
--- NOTE | 2023-01-07 17:52 | P.PNAN_ITS ---
Anes - Eval Pre Procedure Procedure: Operation Date: 01/10/23 10:00 Proposed Procedures p Esophagogastroduodenoscopy & Colonoscopy - Palmer Kennedy MD Date/Time: 01/07/23 17:52 Pre Op Diagnosis: hx of other infectious/parasitic diseases, GERD Patient Data Age: 42 Gender: F Height: 1.63 m Weight: 95.4 kg Allergies Allergy/AdvReac Type Severity Reaction Status Date / Time No Known Allergies Allergy Verified 01/03/23 14:52 Home Medications Medication Instructions Recorded Confirmed Type cholestyramine-aspartame 4 gram 1 ea PO DAILY 01/08/22 01/03/23 History oral powder (Cholestyramine Light) losartan 50 mg tablet 50 mg PO DAILY 01/08/22 01/03/23 History simvastatin 20 mg tablet 20 mg PO DAILY 01/08/22 01/03/23 History omeprazole 40 mg capsule,delayed 40 mg PO DAILY #30 caps 12/15/22 01/03/23 Rx release rifaximin 550 mg tablet (Xifaxan) 550 mg PO TID 14 days #42 tabs 12/16/22 01/03/23 Rx Patient hx anesthesia problems: none Family hx anesthesia problems: none Results Review: All pre-operative results and documents have been reviewed as part of the pre- operative evaluation. [facility] Past Medical History Medical History (Updated 01/07/23 @ 17:54 by Leia Rogers CRNA) Bloating Chronic diarrhea Clostridium difficile infection COVID-19 05/2022 Elevated cholesterol GERD (gastroesophageal reflux disease) Hx of Clostridium difficile infection Hypertension Obesity Pneumothorax Rotator cuff (capsule) sprain Surgical History Surgical History (Updated 12/15/22 @ 15:51 by Lizz Bryan APRN) H/O tubal ligation H/O: hysterectomy History of cholecystectomy Family History Family History Other Diabetes mellitus Family history of malignant neoplasm Hypertension Social History Social History Smoking status: Never smoker Alcohol intake: never Substance use: current Substance use type: does not use Lack of Transportation: No Lack of Food: Never True Current Housing: I Have Housing Concerned About Future Housing: No Difficulty Paying Gas/Electric Bills: No Difficulty Paying for Meds: No Currently Unemployed: No Education: Bachelor's Degree Difficulty w/ Childcare or Family Care: No Living arrangements: with family Gender identity (if verbalized by the patient): Female Spiritual care concerns: No Exam Day of Procedure 01/07/23 17:52
[2023-01-10 08:28] VITALS: BP 142/100; PULSE 109; RESP 20; TEMP 36.2; O2SAT 96; BMI 34.9
[2023-01-10] MEDS: LACTATED RINGERS 1,000 ML 150 ML IV CONT (08:52)
--- NOTE | 2023-01-10 09:22 | P.PNAN_ITS ---
Anes - Eval Final PreProcedure Day of Procedure 01/10/23 09:22 Patient weight: obese Heart: regular rate and rhythm Lungs: clear to auscultation Airway: Mallampati scale class II Neurological: alert and oriented Last oral intake: >/= 8 hours ASA classification: III Emergent: no Anesthetic plan: proceed Anesthesia type and monitoring: general GIVS and standard monitoring Results Review: All pre-operative results and documents have been reviewed as part of the pre- operative evaluation. Informed Consent: The patient's anesthetic plan and its attendant risks and benefits were discussed with the patient/family/POA. Questions were solicited and answers provided to the satisfaction of the patient/family/POA.
--- NOTE | 2023-01-10 09:38 | WPDHPUPDATE1 ---
History and Physical Update Update Date/Time: 01/10/23 09:38 History and Physical has been reviewed, including an updated exam of the patient. There are NO changes in the patient's condition. Risks, benefits, and alternatives have been discussed and questions answered. Patient agrees to proceed with procedure.
[2023-01-10] MEDS: BENZOCAINE (*SP) 60 ML SPRAY CAN (HURRICAINE) 1 SPRAY MUCOUS MEM (09:45)
--- NOTE | 2023-01-10 10:08 | SUR.OPER ---
EGD started at 49 and ended at 0954. Colonoscopy started at 59 and ended at 1007.
[2023-01-10 10:12] VITALS: BP 110/67; PULSE 92; RESP 23; O2SAT 94
[2023-01-10 10:22] VITALS: BP 112/67; PULSE 84; RESP 18; O2SAT 96
[2023-01-10 10:32] VITALS: BP 118/74; PULSE 93; RESP 25; O2SAT 100
== END 2023-01-10 10:45 | disposition home or self-care (01) ==
PROVIDERS: PCP Family Medicine; Visit Provider Internal Medicine Gastroenterology
PROC: 0DJ08ZZ Inspection of Upper Intestinal Tract, Via Natural or Artificial Opening Endoscopic (ICD-10-PCS; CPT 43235; principal; 2023-01-10 10:00)
DX: Z12.11 Encounter for screening for malignant neoplasm of colon (principal); K57.30 Diverticulosis of large intestine without perforation or abscess without bleeding; K21.9 Gastro-esophageal reflux disease without esophagitis; R14.0 Abdominal distension (gaseous); K44.9 Diaphragmatic hernia without obstruction or gangrene; R19.7 Diarrhea, unspecified; E78.00 Pure hypercholesterolemia, unspecified; Z90.49 Acquired absence of other specified parts of digestive tract; E66.9 Obesity, unspecified; Z68.35 Body mass index [BMI] 35.0-35.9, adult; Z86.19 Personal history of other infectious and parasitic diseases
CPT/HCPCS: 45380; 43239; 88184; 88305; J2704; J7120

== ENCOUNTER 2023-01-10 10:54 | Outpatient (CLI) | payer OTHER, SELFPAY | END 2023-01-10 10:55 | disposition home or self-care (01) | LOC: ANHLAB 10:57 | PROVIDERS: PCP Family Medicine; Visit Provider Internal Medicine Hematology & Oncology | DX: D72.829 Elevated white blood cell count, unspecified (principal) | CPT/HCPCS: 88184 ==

== ENCOUNTER 2023-01-11 14:15 | Outpatient (RCR) | payer OTHER, SELFPAY ==
--- NOTE | 2023-01-11 14:22 | WPDONCPN ---
Progress Note: A/P (1) Leukocytosis, unspecified Code(s): D72.829 - Elevated white blood cell count, unspecified Status: Acute Assessment and plan: Patient with chronic leukocytosis which I believe is reactive. CRP is high. Patient has left shoulder pain due to tendinopathy and likely the cause. However, Flow cytometry results are pending. Patient will have telephone visit with Dr. Zavala in 2 weeks to review results of flow cytometry. - Time Spent With Patient Total time spent is greater than 50% in coordination of care (as documented) at patient's floor/unit and/or counseling patient: 25 - 35 minutes Subjective Interval history: REASON FOR VISIT: CHRONIC LEUKOCYTOSIS HPI: Mrs. Jerez is a pleasant 42 y/o female who has seen Dr. Zavala on 12/22/22 for chronic leukocytosis. After review of the chart it was thought to be reactive- Inflammatory tendinopathy left shoulder vs. GI etiology (diarrhea). Patient underwent EGD and Colonoscopy 01/10/23 which showed hiatal hernia and diverticula in the colon. Stomach biopsy showed mild inflammation. Patient was to do Flow cytometry as further evaluation of leukocytosis but the lab was not drawn till 01/10/23 and results are pending. Patient states that she is mildly fatigued after the colon prep yesterday but otherwise feels well. She has continued left shoulder pain. Continues to complain of bloating. Review of Systems - Review of Systems Patient states that she is fatigued after colon prep yesterday. Otherwise she feels well. Left shoulder is painful. No f/c, night sweats. No dizziness, blurry or double vision. syncope, TIA or CVA. No abdominal pain but has bloating. No chest pain, dyspnea, cough or hemoptysis. No hematochezia or melena. no hematuria or dysuria. No rash. No lymphadenopathy. Exam - Constitutional no acute distress, obese - Routine HEENT Exam Head: Present: atraumatic, normal inspection, normocephalic Eye: Present: EOMI, normal appearance, PERRL ENT: Present: mucous membranes moist - Routine Neck Exam Present: full ROM - Routine Respiratory Exam Present: CTAB - Routine Cardiovascular Exam Cardiovascular: Present: RRR, S1, S2 - Routine Abdominal Exam Present: normal bowel sounds - Routine Back/Spine/Pelvis Exam Back/Spine: Present: full ROM - Routine Skin Exam Present: intact, normal turgor - Routine Neurological Exam Present: alert, oriented X3, CN II-XII intact
== END 2023-01-17 10:38 ==
LOC: AMCINF 14:15
PROVIDERS: PCP Family Medicine; Visit Provider Internal Medicine
DX: D72.829 Elevated white blood cell count, unspecified (principal); K44.9 Diaphragmatic hernia without obstruction or gangrene
CPT/HCPCS: 99199

== ENCOUNTER 2023-11-28 08:35 | Outpatient (CLI) | payer OTHER, SELFPAY | END 2023-11-28 08:36 | disposition home or self-care (01) | LOC: ANHLAB 08:39 | PROVIDERS: PCP Family Medicine; Visit Provider Physician Assistant | DX: E11.9 Type 2 diabetes mellitus without complications (principal) | CPT/HCPCS: 36415; 83036 ==

== ENCOUNTER 2024-11-23 14:52 | Emergency (ER) | payer OTHER, SELFPAY ==
--- NOTE | ~2024-11-23 | XR_ITS ---
XR foot RT min 3V 11/23/2024 15:24 Indication: Right foot pain Procedure: 4 views right foot Comparison: No prior studies for comparison. Findings: No fracture, subluxation or dislocation. Lisfranc joint intact. There is a degenerative damaso caneal enthesophyte at the plantar surface. Impression: 1: No acute bone or joint abnormality. Reviewed, dictated and finalized at location A. Impression: 1: No acute bone or joint abnormality.
[2024-11-23 15:05] VITALS: BP 108/79; PULSE 82; RESP 16; TEMP 36.6; O2SAT 100
--- NOTE | 2024-11-23 15:18 | ED.LOWEXIN ---
HPI - Extremity Injury (Lower) General Chief Complaint: Extremity Injury, Lower Stated Complaint: R ANKLE INJURY Time Seen by Provider: 11/23/24 14:54 Source: patient Mode of arrival: ambulatory Limitations: no limitations History of Present Illness HPI Narrative: Patient is a 44-year-old female who presents with right foot pain after stepping down really hard on her foot today approximately 4 hours ago. Reports pain is primarily to the arch of the foot radiating back to the heel. Bruising and swelling to the of arch of foot. At pain 8/10 with walking. Related Data Home Medications ?Medication ?Instructions ?Recorded ?Confirmed ?Last Taken ?Type simvastatin 20 mg tablet 20 mg PO DAILY 01/08/22 11/23/24 Unknown History losartan 50 mg tablet 100 mg PO DAILY 03/01/23 11/23/24 Unknown History semaglutide 1 mg/dose (4 mg/3 mL) 1 mg subcut WEEKLY 11/23/24 11/23/24 Unknown History subcutaneous pen injector (Ozempic) Allergies Allergy/AdvReac Type Severity Reaction Status Date / Time No Known Allergies Allergy Verified 11/23/24 15:00 Review of Systems Review of Systems: All systems reviewed & are unremarkable except as noted in HPI and below Constitutional: Constitutional: Denies body ache(s), Denies chills, Denies fatigue, Denies fever(s), Denies headache(s), Denies malaise and Denies weakness Eyes: Eyes: Denies blurry vision, Denies irritation and Denies loss of vision ENT: Denies otalgia, Denies headache(s), Denies nasal discharge, Denies sinus pain and Denies sore throat Cardiovascular: Cardiovascular: Denies chest pain, Denies irregular heart rhythm and Denies dyspnea Respiratory: Respiratory: Denies dyspnea Gastrointestinal: Gastrointestinal: Denies abdominal pain, Denies melena, Denies hematochezia, Denies diarrhea, Denies nausea and Denies vomiting Musculoskeletal: Musculoskeletal: Denies back pain, Denies myalgias, Reports arthralgias and Reports joint swelling Integumentary/Breasts: Skin/Breast: Denies pruritus and Denies rash Neurologic: Denies headache(s), Denies loss of vision and Denies weakness Psychiatric: Psychiatric: Reports no additional psychiatric complaints Endocrine: Endocrine: Denies fatigue PMFSH Past Medical History Medical History Screening for breast cancer Colon cancer screening Diverticula of colon Hiatal hernia Irritable bowel syndrome with diarrhea Pneumothorax Obesity Bloating GERD (gastroesophageal reflux disease) Hx of Clostridium difficile infection Chronic diarrhea Rotator cuff (capsule) sprain Elevated cholesterol Hypertension Clostridium difficile infection COVID-19 05/2022 Surgical History Surgical History H/O hernia repair History of delivery H/O ovarian cystectomy H/O: hysterectomy H/O tubal ligation History of cholecystectomy Family History Family History Other Diabetes mellitus Family history of malignant neoplasm Hypertension Social History Social History Smoking status: Never smoker Alcohol intake: never Substance use: current Substance use type: does not use Lack of Transportation: No Lack of Food: Never True Current Housing: I Have Housing Concerned About Future Housing: No Difficulty Paying Gas/Electric Bills: No Difficulty Paying for Meds: No Currently Unemployed: No Education: Bachelor's Degree Difficulty w/ Childcare or Family Care: No Living arrangements: with family Gender identity (if verbalized by the patient): Female Spiritual care concerns: No Comments At time of signature, agree with nursing past medical, surgical, social and family history. There is no relevant family history pertinent to the presenting complaint. Exam Const: General: cooperative, healthy appearing, comfortable, no acute distress and well nourished Nutritional Appearance: well nourished Orientation/consciousness: patient oriented x3 Limitations: no limitations HENMT: Head: normal to inspection, normocephalic and atraumatic Ears: hearing grossly normal bilaterally and external ears normal Face/Nose/Sinus: Normal external nose present, normal facial exam and face symmetric Face and sinus: normal facial exam and face symmetric Mouth: Yes lip normal Eyes: General: appearance normal, both eyes and all related structures Alignment and Position: alignment normal and position normal Periorbital: periorbital findings normal Eyelids: eyelids normal Pupils: Equal, round and reactive pupils present EOM: EOMs intact bilaterally Neck: Neck: normal visual inspection, full ROM and supple Chest: Chest palpation & inspection: normal inspection of the chest Resp: Effort & Inspection: normal respiratory effort and able to speak in complete sentences Auscultation: clear to auscultation bilaterally Cardio: Rate: regular rate Rhythm: regular rhythm Heart sounds: S1 normal heart sound present and S2 normal heart sound present GI: Inspection: normal to inspection Skin: General skin exam: normal color and no rashes or lesions noted Neuro: General: patient oriented x3 and moves all extremities Cranial nerves: Yes Equal, round and reactive pupils present Speech: normal speech Gait exam (Neuro): Normal gait present Extrem: General: normal to inspection, full ROM and no edema Right lower extremity: ankle Details: normal to inspection and abnormal ROM Details: pain with active ROM Details: with dorsiflexion; not with plantar flexion, not with inversion and not with eversion; no tenderness, no swelling, no ecchymosis and achilles tendon exam normal and foot Details: normal capillary refill, tenderness Location: of the plantar foot Location: other (mid foot), toes with normal ROM, ecchymosis plantar mid Details: single and vascular exam Details: dorsalis pedis pulse present and normal capillary refill; no unusual warmth Psych: Appearance: grossly normal and well kempt Mental Status: mental status grossly normal Speech and movement: Normal speech and movement present Affect: normal affect Attitude: cooperative Thought process: Normal thought process present Course Course Emergency Course: Patient is aware of diagnosis, understands and agrees to treatment plan. Anticipatory guidance given. Patient agrees to follow-up as directed and is aware of reasons to seek care at the emergency department. Portions of this record may have been created with voice recognition software Level of Care: Express Care Visit Vital Signs Vital signs: Vital Signs Temperature 36.6 C 11/23/24 15:05 Pulse Rate 82 11/23/24 15:05 Respiratory Rate 16 11/23/24 15:05 Blood Pressure 108/79 11/23/24 15:05 Pulse Oximetry 100 11/23/24 15:05 Temperature 36.6 C 11/23/24 15:05 Pulse Rate 82 11/23/24 15:05 Respiratory Rate 16 11/23/24 15:05 Blood Pressure 108/79 11/23/24 15:05 Pulse Oximetry 100 11/23/24 15:05 Reviewed MDM - Extremity Injury (Lower) MDM Narrative Medical decision making narrative: Anil wrap and postop shoe applied Pt well hydrated appearing, in no respiratory distress, hemodynamically stable. Recommend supportive care. The patient is stable at time of discharge the clinical impression was discussed and the patient was given the opportunity to ask questions, which were addressed as completely as possible given the information available at present. Anticipatory guidance and return to care precautions were discussed and the importance of primary care follow-up was stressed and encouraged. The patient voiced understanding of the plan, indications to return, and the need for follow-up. Exam findings show no acute concerns or changes Patient is appropriate for outpatient treatment and follow-up. Differential Diagnosis Differential diagnosis: Likely ankle sprain and strain, ankle fracture and other (Foot sprain, foot fracture) Medical Records Attestation: I reviewed the patient's medical records. Imaging Data Radiologist's impression: XR foot RT min 3V 11/23/2024 15:24 Indication: Right foot pain Procedure: 4 views right foot Comparison: No prior studies for comparison. Findings: No fracture, subluxation or dislocation. Lisfranc joint intact. There is a degenerative calcaneal enthesophyte at the plantar surface. Impression: 1: No acute bone or joint abnormality. Discharge Plan Discharge Clinical Impression: Foot sprain Qualifiers: Encounter type: initial encounter Laterality: right Qualified Code(s): S93.601A - Unspecified sprain of right foot, initial encounter Patient Disposition: Home Condition: Stable Instructions: Foot Sprain (ED) Additional Instructions: Xray showed no fracture. Minimize activities that aggravate the condition The RICE protocol. Follow the RICE protocol as soon as possible after your injury: Rest your foot by not walking on it. Ice should be immediately applied to keep the swelling down. It can be used for 20 to 30 minutes, three or four times daily. Do not apply ice directly to your skin. Compression dressings, bandages or anil-wraps will immobilize and support your injured foot. Elevate your foot above the level of your heart as often as possible during the first 48 hours. Medication: Nonsteroidal anti-inflammatory drugs (NSAIDs) such as ibuprofen and naproxen can help control pain and swelling. Because they improve function by both reducing swelling and controlling pain, they are a better option for mild sprains than narcotic pain medicines. Please schedule a follow-up visit with your personal physician for further evaluation and treatment within 1week OR If your symptoms persist, change or worsen significantly before you can contact your personal physician then please, without delay, go to the emergency department for further evaluation. Patient Language: Togolese Prescriptions: New ibuprofen 600 mg tablet 600 mg PO TID PRN (Reason: pain) Qty: 60 0RF No Action Ozempic 1 mg/dose (4 mg/3 mL) pen injector 1 mg SUBCUT WEEKLY simvastatin 20 mg tablet 20 mg PO DAILY losartan 50 mg tablet 100 mg PO DAILY omeprazole 40 mg capsule,delayed release(DR/EC) See Rx Instructions .ROUTE .COMPLEX Qty: 30 6RF Dose Instruction: TAKE 1 CAPSULE BY MOUTH DAILY Rx Instructions: TAKE 1 CAPSULE BY MOUTH DAILY Follow-up/Referrals: Cordell,Flori Montemayor MD [Primary Care Provider] - 3 Days Stand Alone Forms: Work/School Release IP Time of Disposition: 15:52
== END 2024-11-23 15:56 | disposition home or self-care (01) ==
PROVIDERS: Emergency Provider Nurse Practitioner Family; PCP Student in an Organized Health Care Education/Training Program
DX: S93.601A Unspecified sprain of right foot, initial encounter (principal); X50.9XXA Other and unspecified overexertion or strenuous movements or postures, initial encounter; K21.9 Gastro-esophageal reflux disease without esophagitis; I10 Essential (primary) hypertension; E78.00 Pure hypercholesterolemia, unspecified; E66.9 Obesity, unspecified; Z68.20 Body mass index [BMI] 20.0-20.9, adult; Z86.16 Personal history of COVID-19; Z86.19 Personal history of other infectious and parasitic diseases
CPT/HCPCS: 73630; 99213; G0463